=== PATIENT | female | born 1980 | race Caucasian/White ===

== ENCOUNTER 2020-10-08 10:03 | Outpatient (REF) | payer OTHER, SELFPAY ==
[2020-10-09 13:19] LABS: BV Int Neg Control Negative (Negative); BV Int Pos Control Positive (Positive)
[2020-10-09 17:43] LABS: C. trachomatis RNA TMA NOT DETECTED (NOT DETECTED); N. gonorrhoeae RNA TMA NOT DETECTED (NOT DETECTED)
== END 2020-10-08 10:04 | disposition home or self-care (01) ==
LOC: HO.LAB 10:03
PROVIDERS: PCP Internal Medicine; Visit Provider Advanced Practice Midwife
DX: Z01.419 Encounter for gynecological examination (general) (routine) without abnormal findings (principal); R10.2 Pelvic and perineal pain; Z11.8 Encounter for screening for other infectious and parasitic diseases; Z11.3 Encounter for screening for infections with a predominantly sexual mode of transmission
CPT/HCPCS: 87480; 87491; 87510; 87591; 87660; 88142

== ENCOUNTER 2020-10-12 11:23 | Outpatient (REF) | payer OTHER, SELFPAY | END 2020-10-12 11:24 | disposition home or self-care (01) | LOC: HO.LAB 11:23 | PROVIDERS: Visit Provider Advanced Practice Midwife | DX: Z13.89 Encounter for screening for other disorder (principal) ==

== ENCOUNTER 2020-10-18 | Outpatient (REF) | payer OTHER, SELFPAY ==
[2020-10-19 22:52] LABS: HPV mRNA E6/E7 rflx Not Detected (Not Detected)
== END 2020-10-18 00:01 | disposition home or self-care (01) ==
LOC: HO.LNP
PROVIDERS: Visit Provider Advanced Practice Midwife
DX: Z01.419 Encounter for gynecological examination (general) (routine) without abnormal findings (principal)
CPT/HCPCS: 36415; 87624

== ENCOUNTER 2020-10-20 11:01 | Outpatient (REF) | payer OTHER, SELFPAY ==
--- NOTE | ~2020-10-20 | US_ITS ---
EXAMINATION: PELVIC ULTRASOUND CLINICAL INFORMATION: Pelvic and perineal pain COMPARISON: None TECHNIQUE: Transabdominal and transvaginal pelvic ultrasound was performed. Transvaginal exam was performed for better visualization of the uterus and ovaries. FINDINGS: The uterus is anteverted and measures 12 x 4.7 x 6.7 cm in dimension. There are 3 focal uterine lesions suggestive of fibroids. These measure 2 x 1.2 x 1.4 cm and 0.9 x 0.8 x 0.8 cm in the anterior uterine body and 1.5 x 1.4 x 1.6 cm in the anterior uterine fundus. Endometrial thickness is normal measuring 0.8 cm. There are nabothian cysts in the cervix. The ovaries are normal-appearing. The right ovary measures 2.1 x 1 x 1.6 cm and the left ovary measures 2.4 x 1.6 x 2.1 cm. There is no fluid in the pelvis. US/US transvaginal IMPRESSION: Small uterine fibroids. Normal-appearing ovaries.
--- NOTE | ~2020-10-20 | US_ITS ---
EXAMINATION: PELVIC ULTRASOUND CLINICAL INFORMATION: Pelvic and perineal pain COMPARISON: None TECHNIQUE: Transabdominal and transvaginal pelvic ultrasound was performed. Transvaginal exam was performed for better visualization of the uterus and ovaries. FINDINGS: The uterus is anteverted and measures 12 x 4.7 x 6.7 cm in dimension. There are 3 focal uterine lesions suggestive of fibroids. These measure 2 x 1.2 x 1.4 cm and 0.9 x 0.8 x 0.8 cm in the anterior uterine body and 1.5 x 1.4 x 1.6 cm in the anterior uterine fundus. Endometrial thickness is normal measuring 0.8 cm. There are nabothian cysts in the cervix. The ovaries are normal-appearing. The right ovary measures 2.1 x 1 x 1.6 cm and the left ovary measures 2.4 x 1.6 x 2.1 cm. There is no fluid in the pelvis. US/US pelvic complete IMPRESSION: Small uterine fibroids. Normal-appearing ovaries.
== END 2020-10-20 11:02 | disposition home or self-care (01) ==
LOC: HO.US 11:01
PROVIDERS: PCP Internal Medicine; Visit Provider Advanced Practice Midwife
DX: R10.2 Pelvic and perineal pain (principal)
CPT/HCPCS: 76830; 76856

== ENCOUNTER 2021-02-28 11:25 | Outpatient (REF) | payer OTHER, SELFPAY ==
--- NOTE | ~2021-02-28 | MM_ITS ---
EXAMINATION: MM SCREENING DIGITAL BREAST TOMOSYNTHESIS, BILATERAL CLINICAL INFORMATION: Screening. Asymptomatic. Age 40. No prior breast imaging. No known family history breast cancer. The lifetime risk of breast cancer based on the Tyrer-Cuzick Model is 8%. COMPARISON: None (current study represents initial baseline exam). TECHNIQUE: Digital breast tomosynthesis is performed in both the craniocaudal and mediolateral oblique views along with computer-aided detection (CAD). Synthesized 2D images are generated from the tomosynthesis. FINDINGS: The breasts are heterogeneously dense, which may obscure small masses (ACR BI-RADS breast composition Category c). There are no significant masses, abnormal calcifications, or other abnormalities. The axilla and skin contours are unremarkable. MM/MM tomosynthesis screening BI IMPRESSION: No mammographic evidence of malignancy. ASSESSMENT: BI-RADS 1: Negative RECOMMENDATION: Routine annual mammography screening. This patient's information was entered into a reminder system with a target due date for their next mammogram.
== END 2021-02-28 11:26 | disposition home or self-care (01) ==
LOC: HO.MAMMO 11:25
PROVIDERS: Visit Provider Advanced Practice Midwife
DX: Z12.31 Encounter for screening mammogram for malignant neoplasm of breast (principal)
CPT/HCPCS: 77063; 77067

== ENCOUNTER 2021-05-17 16:32 | Emergency (ER) | payer OTHER, SELFPAY ==
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
[2021-05-17 16:45] VITALS: BP 160/109; BP 172/108; PULSE 112; PULSE 119; RESP 18; TEMP 37.2; O2SAT 100; O2SAT 95; BMI 27.9
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
[2021-05-17 17:07] VITALS: BP 159/97; PULSE 93; RESP 18; TEMP 36.1; O2SAT 95
--- NOTE | 2021-05-17 18:49 | PC.NURSE ---
Pt cleared of cervical collar. Steady to bathroom to void and currently in xray at this time
[2021-05-17] MEDS: Cyclobenzaprine HCl 10 MG TABLET PO (19:20)
[2021-05-17] MEDS: Ibuprofen 600 MG TABLET PO (19:20)
[2021-05-17 19:22] VITALS: BP 126/89; PULSE 83; RESP 16
[2021-05-17 19:23] VITALS: O2SAT 99
== END 2021-05-17 20:46 | disposition home or self-care (01) ==
PROVIDERS: Emergency Provider Emergency Medicine; PCP Internal Medicine
DX: S06.0X1A Concussion with loss of consciousness of 30 minutes or less, initial encounter (principal); S13.4XXA Sprain of ligaments of cervical spine, initial encounter; S20.312A Abrasion of left front wall of thorax, initial encounter; V43.52XA Car driver injured in collision with other type car in traffic accident, initial encounter; W22.11XA Striking against or struck by driver side automobile airbag, initial encounter; Y93.89 Activity, other specified; Y92.414 Local residential or business street as the place of occurrence of the external cause; Y99.9 Unspecified external cause status
CPT/HCPCS: 70450; 71046; 71100; 72125; 73030; 99284

== ENCOUNTER 2021-10-25 15:01 | Outpatient (REF) | payer OTHER, SELFPAY ==
[2021-10-26 13:10] LABS: BV Int Neg Control Negative (Negative); BV Int Pos Control Positive (Positive)
== END 2021-10-25 15:02 | disposition home or self-care (01) ==
LOC: HO.LAB 15:01
PROVIDERS: Visit Provider Advanced Practice Midwife
DX: Z01.419 Encounter for gynecological examination (general) (routine) without abnormal findings (principal)
CPT/HCPCS: 87480; 87510; 87660

== ENCOUNTER 2022-08-22 08:33 | Emergency (ER) | payer OTHER, SELFPAY ==
--- NOTE | ~2022-08-22 | XR_ITS ---
EXAMINATION: XR CHEST CLINICAL INFORMATION: Cough and fever. COMPARISON: Chest radiographs dated 05/17/2021. TECHNIQUE: 2 views of the chest were obtained. FINDINGS: No significant abnormality is noted involving the heart, lungs, mediastinum, bony thorax or soft tissues. Surgical clips overlie the right upper quadrant. XR/XR chest 2V IMPRESSION: No acute cardiopulmonary process.
[2022-08-22 08:47] VITALS: BP 113/79; PULSE 100; RESP 18; TEMP 37.4; O2SAT 98; BMI 29.2
--- NOTE | 2022-08-22 09:09 | ED.URI ---
HPI - URI/Sore Throat General Chief Complaint: Upper Respiratory Symptoms Stated Complaint: Flu Symptoms Time Seen by Provider: 08/22/22 08:59 Source: patient Mode of arrival: ambulatory Limitations: no limitations History of Present Illness HPI Narrative: 42-year-old female previously healthy here with 3 days of subjective fever, cough, congestion, chest discomfort with coughing, headache, body aches. No vomiting, diarrhea, shortness of breath, leg swelling or leg pain, skin rash, neck pain or neck stiffness. Patient reports multiple sick contacts at work including the flu Related Data Previous Rx's Medication Instructions Recorded cyclobenzaprine 10 mg tablet 10 mg PO TID PRN muscle spasm #14 05/17/21 tabs ibuprofen 600 mg tablet 600 mg PO Q6H PRN pain #60 tabs 05/17/21 metronidazole 0.75 % (37.5 mg/5 1 appful vaginal BEDTIME 5 days 10/27/21 gram) vaginal gel (Metrogel #70 grams Vaginal) nirmatrelvir 300 mg (150 mg See Rx Instructions PO .COMPLEX 08/22/22 x2)-ritonavir 100 mg tablet,dose #30 ea pack(EUA) (Paxlovid) Allergies Allergy/AdvReac Type Severity Reaction Status Date / Time No Known Allergies Allergy Verified 10/25/21 15:04 [No Known Allergies*] Review of Systems Review of Systems: Yes all other systems are reviewed and are negative Constitutional: Constitutional: Reports no additional constitutional complaints, Reports body ache(s), Denies chills, Reports fever(s), Reports headache(s) and Denies weakness Eyes: Eyes: Reports no additional eye complaints and Denies change in vision ENT: Reports system reviewed and no additional complaints, except as documented, Denies dizziness, Reports headache(s), Reports nasal congestion, Denies nasal discharge and Denies neck pain Cardiovascular: Cardiovascular: Reports no additional cardiovascular complaints, Reports chest pain, Denies leg edema and Denies dyspnea Respiratory: Respiratory: Reports no additional respiratory complaints, Reports cough and Denies dyspnea Gastrointestinal: Gastrointestinal: Reports no additional gastrointestinal complaints, Denies abdominal pain, Denies diarrhea, Denies nausea and Denies vomiting Genitourinary: Genitourinary: Reports no additional female genitourinary complaints and Denies urinary incontinence Musculoskeletal: Musculoskeletal: Reports no additional musculoskeletal complaints, Denies back pain, Denies arthralgias, Denies joint swelling, Denies neck pain, Denies numbness and Denies tingling Integumentary/Breasts: Skin/Breast: Reports system reviewed and no additional complaints, except as docu and Denies rash Neurologic: Reports system reviewed and no additional complaints, except as documented, Denies Abnormal speech present, Denies dizziness, Reports headache(s), Denies numbness, Denies tingling and Denies weakness PMF Past Medical History Attestation statement: The following information was validated with the patient. Source: old records reviewed and nursing notes reviewed Medical History Encounter for gynecological examination with Papanicolaou smear of cervix History of gallbladder disease Family History Family History Maternal Aunt Breast cancer Brother Diabetes Father Diabetes Social History Social History Alcohol intake: current Alcohol intake frequency: holidays/special occasions only Advance Directives: No Gender identity: Female Physical Exam Vital Signs: Vital Signs: Last Vital Signs Temp 99.3 F 08/22/22 08:47 Pulse 100 08/22/22 08:47 Resp 18 08/22/22 08:47 BP 113/79 08/22/22 08:47 Pulse Ox 98 08/22/22 08:47 O2 Del Method 08/22/22 08:47 BMI result Body Mass Index 29.2 Const: General: cooperative, healthy appearing, comfortable and no acute distress Orientation/consciousness: patient oriented x3 Limitations: no limitations HEENT: Head: Yes normal to inspection Ears: hearing grossly normal bilaterally and TM's normal bilaterally General nose exam: Normal external nose present Face and sinus: Yes normal facial exam Mouth: Normal oral and palatal mucosa present Throat: Yes posterior oropharynx normal, Yes tonsils normal and Yes uvula midline Eyes: General: appearance normal, both eyes and all related structures Pupils: Equal, round and reactive pupils present Neck: Neck: Yes normal visual inspection, Yes full ROM, Yes no lymphadenopathy and Yes no meningeal signs Chest: Chest palpation & inspection: normal inspection of the chest Resp: Effort & Inspection: normal respiratory effort Auscultation: clear to auscultation bilaterally Cardio: Rate: regular rate Rhythm: regular rhythm Peripheral pulses: Peripheral pulses 2+ throughout GI: Inspection: Yes normal to inspection Palpation (GI): Soft to palpation and nontender Auscultation: normal bowel sounds Back/Spine/Pelvis: Thoracic/Lumbar Spine: thoracic and lumbar spine normal to inspection Skin: General skin exam: no rashes or lesions noted Neuro: General: patient oriented x3, no meningeal signs, no focal motor deficits and normal sensation to monofilament Cranial nerves: Yes Equal, round and reactive pupils present Cognition (Neuro): normal cognition Speech: No Abnormal speech present Gait exam (Neuro): Normal gait present Motor exam (neuro): 5/5 motor strength present throughout Extrem: General: Yes normal to inspection, Yes no pedal edema and Yes no calf tenderness Course Course Course Narrative: COVID screen is positive. No hypoxia or tachypnea. Patient interested in Paxlovid. She is aware this is not FDA approved. She was given the information she about the medication. I explained common side effects the patient. Reviewed quarantine at home. Reviewed worrisome signs and symptoms of when to return to the emergency room. Comfortable plan for discharge home. Medications Administered Discontinued Medications Generic Name Dose Route Start Last Admin Trade Name Freq PRN Reason Stop Dose Admin Acetaminophen 975 mg 08/22/22 09:16 08/22/22 09:34 Acetaminophen 325 Mg Tablet PO 08/22/22 09:17 975 mg ONCE ONE Administration Medical Decision Making Medical Decision Making [facility] Narrative: 42-year-old female here with flu-like symptoms for 3 days including chest discomfort with coughing Perc score 0 Will check testing for flu, COVID, RSV. Will obtain x-ray and provide analgesia Differential Diagnosis Differential Diagnoses: The differential diagnosis associated with the presentation includes Pneumonia, viral syndrome,influemza Lab Data [facility] Lab Attestation statement: I reviewed the patient's lab results. Labs: Lab Results 08/22/22 Range/Units 08:53 Influenza Type A (PCR) NEGATIVE (Negative) Influenza Type B (PCR) NEGATIVE (Negative) RSV RNA Qual (PCR) NEGATIVE (Negative) SARS-CoV-2 RNA (RT-PCR) POSITIVE A (Negative) Independent Interpretation I performed an independent interpretation of an: Plain X-Ray Interpretation: [address] [address] XRay Report Signed Patient: Karlene Sherwood MR#: [id number] : 1980 Acct:[id number] Age/Sex: 42 / F ADM Date: 08/22/22 Loc: HO.ED Attending Dr: Ordering Physician: Sabina Penn NP Date of Service: 08/22/22 Procedure(s): XR chest 2V Accession Number(s): [id number] cc: Sabina Penn NP~ EXAMINATION: XR CHEST CLINICAL INFORMATION: Cough and fever. COMPARISON: Chest radiographs dated 05/17/2021. TECHNIQUE: 2 views of the chest were obtained. FINDINGS: No significant abnormality is noted involving the heart, lungs, mediastinum, bony thorax or soft tissues. Surgical clips overlie the right upper quadrant. XR/XR chest 2V IMPRESSION: No acute cardiopulmonary process. Discharge Plan Discharge Clinical Impression: COVID-19 Patient Disposition: Home, Self-Care Instructions: COVID-19 (Coronavirus Disease 2019) (ED) Additional Instructions: Quarantine for 5 days Alternate Motrin and Tylenol for pain or fever Increase fluids, rest Return for worsening symptoms We discussed prescribing Paxlovid. You were given a patient information sheet on this medication. This is not FDA approved. There is an emergency use authorization for the medication. Common side effects are vomiting, diarrhea, upset stomach X-ray shows no signs of pneumonia Prescriptions: New Paxlovid (EUA) 300 mg (150 mg x 2)-100 mg tablets,dose pack See Rx Instructions .ROUTE .COMPLEX Qty: 30 0RF Rx Instructions: take TWO 150 mg tablets of nirmatrelvir with ONE 100 mg tablet of ritonavir twice daily for 5 days No Action metronidazole [Metrogel Vaginal] 0.75 % gel 1 appful vaginal BEDTIME 5 Days Qty: 70 0RF cyclobenzaprine 10 mg tablet 10 mg PO TID PRN (Reason: muscle spasm) Qty: 14 0RF ibuprofen 600 mg tablet 600 mg PO Q6H PRN (Reason: pain) Qty: 60 0RF Referrals: Physician,None [Primary Care Provider] - Stand Alone Forms: Work/School Release Interventions: ED Discharge Assessment Last Done: 08/22/22 10:29 Discharge Date/Time: 08/22/22 10:32
[2022-08-22] MEDS: Acetaminophen 325 MG TABLET 975 MG PO (09:34)
[2022-08-22 09:47] LABS: Influenza A PCR NEGATIVE (Negative); Influenza B PCR NEGATIVE (Negative); Resp Syncy Virus RNA Qual PCR NEGATIVE (Negative); SARS COV2 PCR INHOUSE POSITIVE (Negative)
== END 2022-08-22 10:32 | disposition home or self-care (01) ==
PROVIDERS: Emergency Provider Emergency Medicine
DX: U07.1 COVID-19 (principal); R50.9 Fever, unspecified; R05.9 Cough, unspecified; R51.9 Headache, unspecified; M79.10 Myalgia, unspecified site; Z79.899 Other long term (current) drug therapy
CPT/HCPCS: 0241U; 71046; 99283; 99284

== ENCOUNTER 2022-09-07 10:53 | Emergency (ER) | payer OTHER, SELFPAY ==
--- NOTE | ~2022-09-07 | XR_ITS ---
EXAMINATION: XR CHEST CLINICAL INFORMATION: Cough, recent Covid COMPARISON: None TECHNIQUE: 2 views of the chest were obtained. FINDINGS: No significant abnormality is noted involving the heart, lungs, mediastinum, bony thorax or soft tissues. XR/XR chest 2V IMPRESSION: Unremarkable chest examination.
[2022-09-07 11:26] VITALS: BP 133/81; PULSE 114; RESP 18; TEMP 36.7; O2SAT 98; BMI 27.3
--- NOTE | 2022-09-07 11:26 | ED_ITS ---
HPI - URI/Sore Throat General Chief Complaint: Upper Respiratory Symptoms <Sabina Penn NP - Last Filed: 09/07/22 11:28> Stated Complaint: cough sob <Sabina Penn NP - Last Filed: 09/07/22 11:28> Time Seen by Provider: 09/07/22 13:24 <Sabina Penn NP - Last Filed: 09/07/22 11:28> Source: patient <Lauren Major NP - Last Filed: 09/07/22 15:20> Mode of arrival: ambulatory <Lauren Major NP - Last Filed: 09/07/22 15:20> Limitations: no limitations <Lauren Major NP - Last Filed: 09/07/22 15:20> History of Present Illness HPI Narrative: 42-year-old female diagnosed with COVID-19 on 08/22/2022 and started on nirmatrelvir-ritonavir antiviral therapy presents to the emergency department with a four-day history of cough, wheezing, headache, back pain with coughing. She recently had a tele health visit with her primary care provider and was started on prednisone and benzonatate which she began yesterday. She states after taking the prednisone with food, as directed, she began coughing and vomited the prednisone. She has not taken her dose today. She denies any recent fevers but endorses chills. She reports difficulty keeping down p.o. intake due to nausea due to coughing and shoulder/back pain when coughing. She denies any known history of asthma or reactive airway disease, she denies any chest pain, headache, changes in vision, or changes in bowel pattern. <Lauren Major NP - Last Filed: 09/07/22 15:20> MD elicited complaint: cough <Lauren Major NP - Last Filed: 09/07/22 15:20> Onset (ago): day(s) (4) <Lauren Major NP - Last Filed: 09/07/22 15:20> Consistency: constant <Lauren Major NP - Last Filed: 09/07/22 15:20> Severity: moderate <Lauren Major NP - Last Filed: 09/07/22 15:20> Description of mucous: yellow and bloody <Lauren Major NP - Last Filed: 09/07/22 15:20> Able to tolerate fluids by mouth: Yes <Lauren Major NP - Last Filed: 09/07/22 15:20> Exacerbating factors: exertion and deep breaths <Lauren Major NP - Last Filed: 09/07/22 15:20> Relieving factors: nothing <Lauren Major NP - Last Filed: 09/07/22 15:20> Treatments prior to arrival: none <Lauren Major NP - Last Filed: 09/07/22 15:20> Related Data Home Medications: Previous Rx's Medication Instructions Recorded cyclobenzaprine 10 mg tablet 10 mg PO TID PRN muscle spasm #14 05/17/21 tabs ibuprofen 600 mg tablet 600 mg PO Q6H PRN pain #60 tabs 05/17/21 metronidazole 0.75 % (37.5 mg/5 1 appful vaginal BEDTIME 5 days 10/27/21 gram) vaginal gel (Metrogel #70 grams Vaginal) nirmatrelvir 300 mg (150 mg See Rx Instructions PO .COMPLEX 08/22/22 x2)-ritonavir 100 mg tablet,dose #30 ea pack(EUA) (Paxlovid) hydrocodone-homatropine 5 mg-1.5 5 ml PO Q4-6H PRN cough #50 mL 09/07/22 mg/5 mL (5 mL) oral syrup (Hycodan) <Sabina Penn NP - Last Filed: 09/07/22 11:28> Allergies/Adverse Reactions: Allergies Allergy/AdvReac Type Severity Reaction Status Date / Time No Known Allergies Allergy Verified 10/25/21 15:04 [No Known Allergies*] <Sabina Penn NP - Last Filed: 09/07/22 11:28> Review of Systems Review of Systems: In addition to documented HPI above, the additional ROS was obtained: Constitutional: No Weight loss, No Fever ENT/Mouth: No Ear Pain, No Nasal Congestion, No Sinus Pain, No Hoarseness, No Rhinorrhea, No Swallowing Difficulty Cardiovascular: No Chest Pain, Respiratory: No Wheezing Gastrointestinal: No Diarrhea, No Constipation, No Abdominal pain Genitourinary: No Dysuria, No Urinary Frequency, No Hematuria, No Urinary Incontinence/retention, No Urgency, No Flank Pain Musculoskeletal: No joint pain, No Joint Swelling Skin: No Skin Lesions, No rash Neuro: No Weakness, No Numbness, No Paresthesias <Lauren Major NP - Last Filed: 09/07/22 15:20> Yes all other systems are reviewed and are negative <Lauren Major NP - Last Filed: 09/07/22 15:20> [facility] Past Medical History Medical History: Medical History Encounter for gynecological examination with Papanicolaou smear of cervix History of gallbladder disease <Sabina Penn NP - Last Filed: 09/07/22 11:28> Family History Family History: Family History Maternal Aunt Breast cancer Brother Diabetes Father Diabetes <Sabina Penn NP - Last Filed: 09/07/22 11:28> Social History Social History: Social History Alcohol intake: current Alcohol intake frequency: holidays/special occasions only Advance Directives: No Advance Directives Information Provided: Yes Gender identity: Female <Sabina Penn NP - Last Filed: 09/07/22 11:28> Physical Exam Vital Signs: Vital Signs: Last Vital Signs Temp 98.6 F 09/07/22 14:08 Pulse 99 09/07/22 14:08 Resp 18 09/07/22 14:08 BP 132/87 09/07/22 14:08 Pulse Ox 98 09/07/22 11:26 O2 Del Method 09/07/22 11:26 O2 Flow Rate 100 09/07/22 14:08 BMI result Body Mass Index 27.3 <Sabina Penn NP - Last Filed: 09/07/22 11:28> Vital Signs: Last Vital Signs Temp 98.6 F 09/07/22 14:08 Pulse 99 09/07/22 14:08 Resp 18 09/07/22 14:08 BP 132/87 09/07/22 14:08 Pulse Ox 98 09/07/22 11:26 O2 Del Method 09/07/22 11:26 O2 Flow Rate 100 09/07/22 14:08 BMI result Body Mass Index 27.3 <Lauren Major DIRECTOR [employer] - Last Filed: 09/07/22 15:20> Const: General: cooperative, alert and awake <Lauren Major DIRECTOR [employer] - Last Filed: 09/07/22 15:20> Nutritional Appearance: well nourished <Lauren Major DIRECTOR [employer] - Last Filed: 09/07/22 15:20> Orientation/consciousness: patient oriented x3 <Lauren Major DIRECTOR [employer] - Last Filed: 09/07/22 15:20> Limitations: no limitations <Lauren Major DIRECTOR [employer] - Last Filed: 09/07/22 15:20> HEENT: Head: Yes normal to inspection and Yes atraumatic <Lauren Major DIRECTOR [employer] - Last Filed: 09/07/22 15:20> Ears: hearing grossly normal bilaterally and external ears normal <Lauren Major DIRECTOR [employer] - Last Filed: 09/07/22 15:20> General nose exam: Normal external nose present and Normal nares present <Lauren Major DIRECTOR [employer] - Last Filed: 09/07/22 15:20> Face and sinus: Yes normal facial exam, Yes sinuses nontender and Yes face symmetric <Lauren Major DIRECTOR [employer] - Last Filed: 09/07/22 15:20> Mouth: Normal oral and palatal mucosa present <Lauren Major DIRECTOR [employer] - Last Filed: 09/07/22 15:20> Teeth and gingiva: dentition normal <Lauren Major DIRECTOR [employer] - Last Filed: 09/07/22 15:20> Throat: Yes posterior oropharynx normal <Lauren Major DIRECTOR [employer] - Last Filed: 09/07/22 15:20> Eyes: General: appearance normal, both eyes and all related structures <Lauren Major DIRECTOR [employer] - Last Filed: 09/07/22 15:20> Visual Cronin: normal visual cronin by confrontation <Lauren Major, DIRECTOR [employer] - Last Filed: 09/07/22 15:20> Alignment and Position: alignment normal <Lauren Major, DIRECTOR [employer] - Last Filed: 09/07/22 15:20> Periorbital: periorbital findings normal <Lauren Major, DIRECTOR [employer] - Last Filed: 09/07/22 15:20> Eyelids: Yes eyelids normal <Lauren Major, DIRECTOR [employer] - Last Filed: 09/07/22 15:20> Conjunctivae: conjunctivae normal <Lauren Major, DIRECTOR [employer] - Last Filed: 09/07/22 15:20> Sclerae: sclerae normal <Lauren Major, DIRECTOR [employer] - Last Filed: 09/07/22 15:20> Corneas: corneas normal <Lauren Major, DIRECTOR [employer] - Last Filed: 09/07/22 15:20> Pupils: Equal, round and reactive pupils present <Lauren Major, DIRECTOR [employer] - Last Filed: 09/07/22 15:20> EOM: EOMs intact bilaterally <Lauren Major, DIRECTOR [employer] - Last Filed: 09/07/22 15:20> Neck: Neck: Yes normal visual inspection, Yes full ROM and Yes no lymphadenopathy <Lauren Major, DIRECTOR [employer] - Last Filed: 09/07/22 15:20> Chest: Chest palpation & inspection: normal inspection of the chest <Lauren Major DIRECTOR [employer] - Last Filed: 09/07/22 15:20> Resp: Effort & Inspection: normal respiratory effort, Actively coughing Quality: dry and labored <Lauren Major, DIRECTOR [employer] - Last Filed: 09/07/22 15:20> Auscultation: clear to auscultation bilaterally, no crackles, no rhonchi and no wheezes <Lauren Major, DIRECTOR [employer] - Last Filed: 09/07/22 15:20> Cardio: Rate: regular rate <Lauren Major, DIRECTOR [employer] - Last Filed: 09/07/22 15:20> Rhythm: regular rhythm <Laurenburton Major, DIRECTOR [employer] - Last Filed: 09/07/22 15:20> Back/Spine/Pelvis: Cervical Spine: cervical ROM normal <Lauren Moriah, DIRECTOR [employer] - Last Filed: 09/07/22 15:20> Thoracic/Lumbar Spine: thoraco-lumbar ROM normal <Lauren Moriah, DIRECTOR [employer] - Last Filed: 09/07/22 15:20> Skin: General skin exam: no rashes or lesions noted <Lauren Moriah, DIRECTOR [employer] - Last Filed: 09/07/22 15:20> Neuro: General: patient oriented x3, tone normal and moves all extremities <Lauren Moriah, DIRECTOR [employer] - Last Filed: 09/07/22 15:20> Cranial nerves: Yes Equal, round and reactive pupils present <Lauren Moriah, DIRECTOR [employer] - Last Filed: 09/07/22 15:20> Cognition (Neuro): normal cognition <Lauren Yaronucjun, DIRECTOR [employer] - Last Filed: 09/07/22 15:20> Gait exam (Neuro): Normal gait present <Lauren Moriah, DIRECTOR [employer] - Last Filed: 09/07/22 15:20> Motor exam (neuro): 5/5 motor strength present throughout <Lauren Moriah, DIRECTOR [employer] - Last Filed: 09/07/22 15:20> Extrem: General: Yes normal to inspection, Yes full ROM and Yes capillary refill normal <Lauren Moriah, DIRECTOR [employer] - Last Filed: 09/07/22 15:20> Psych: Appearance: grossly normal <Lauren Yaronla, DIRECTOR [employer] - Last Filed: 09/07/22 15:20> Mental Status: mental status grossly normal <Lauren Plla, DIRECTOR [employer] - Last Filed: 09/07/22 15:20> Speech and movement: Normal speech and movement present <Lauren Laurajun, DIRECTOR [employer] - Last Filed: 09/07/22 15:20> Affect: normal affect <Lauren Plucjun, DIRECTOR [employer] - Last Filed: 09/07/22 15:20> Attitude: cooperative <Lauren Moriah, DIRECTOR [employer]GEMENT - Last Filed: 09/07/22 15:20> Thought process: Normal thought process present <Lauren Lauraiennik, DIRECTOR [employer]NAGEMENT - Last Filed: 09/07/22 15:20> Thought content: Normal thought content present <Lauren Major NP - Last Filed: 09/07/22 15:20> Insight: Good insight present (Psych) <Lauren Major NP - Last Filed: 09/07/22 15:20> Judgement: Good judgement present (Psych) <Lauren Major NP - Last Filed: 09/07/22 15:20> Course Course Course Narrative: This is a rapid medical exam. Deferred additional HPI, ROS, PE to primary provider. 42 yo female healthy here with 4 days of cough, wheezing, headache, back pain with coughing. Will check CXR, obtain swabs for flu, covid, rsv. VSS <Sabina Penn NP - Last Filed: 09/07/22 11:28> Medications Administered Discontinued Medications Generic Name Dose Route Start Last Admin Trade Name Freq PRN Reason Stop Dose Admin Albuterol Sulfate 2 puff 09/07/22 13:59 09/07/22 14:07 Albuterol Sulfate 90 Mcg 8 Gm Inhaler INHALE 09/07/22 14:00 2 puff ONCE ONE Administration Hydrocodone Bit/Homatropine Methylb 5 ml 09/07/22 13:57 09/07/22 14:07 Hydrocodone/Homat 5/1.5/5 Ml 5 Ml Syrup PO 09/07/22 13:58 5 ml ONCE ONE Administration Ondansetron HCl 4 mg 09/07/22 13:57 09/07/22 14:07 Ondansetron Odt 4 Mg Tab.Rapdis TRANSLINGU 09/07/22 13:58 4 mg ONCE ONE Administration <Sabina Penn NP - Last Filed: 09/07/22 11:28> Medications Administered Discontinued Medications Generic Name Dose Route Start Last Admin Trade Name Freq PRN Reason Stop Dose Admin Albuterol Sulfate 2 puff 09/07/22 13:59 09/07/22 14:07 Albuterol Sulfate 90 Mcg 8 Gm Inhaler INHALE 09/07/22 14:00 2 puff ONCE ONE Administration Hydrocodone Bit/Homatropine Methylb 5 ml 09/07/22 13:57 09/07/22 14:07 Hydrocodone/Homat 5/1.5/5 Ml 5 Ml Syrup PO 09/07/22 13:58 5 ml ONCE ONE Administration Ondansetron HCl 4 mg 09/07/22 13:57 09/07/22 14:07 Ondansetron Odt 4 Mg Tab.Gita LIGHTU 09/07/22 13:58 4 mg ONCE ONE Administration <Lauren Major NP - Last Filed: 09/07/22 15:20> Medical Decision Making Medical Decision Making MDM Narrative: 42-year-old female diagnosed with COVID-19 on 08/22/2022 and started on nirmatrelvir-ritonavir antiviral therapy presents to the emergency department with a four-day history of cough, wheezing, headache, back pain with coughing. She recently had a telehealth visit with her primary care provider and was started on prednisone and benzonatate which she began yesterday. Chest xray and blood work unremarkable. Serology positive for both COVID-19 and influenza A. Hycodan cough medication and zofran given for cough and complaints of nausea related to cough with good effect. Pt safe for discharge with plan to continue Prednisone and to begin Zofran as needed for nausea and Hycodan cough medicine as needed. HPI, PE, diagnostics, and plan discussed with patient with no unanswered questions at this time. Patient educated to return to the emergency room with worsening shortness of breath, chest pain, headache, vision changes, or any other concerning emergent symptoms. Recommended follow-up with her primary care provider for further treatment and management. <Lauren Major NP - Last Filed: 09/07/22 15:20> Lab Data MDM Lab Attestation statement: I reviewed the patient's lab results. <Lauren Major NP - Last Filed: 09/07/22 15:20> Labs: Lab Results 09/07/22 Range/Units 11:41 Influenza Type A (PCR) POSITIVE A (Negative) Influenza Type B (PCR) NEGATIVE (Negative) RSV RNA Qual (PCR) NEGATIVE (Negative) SARS-CoV-2 RNA (RT-PCR) POSITIVE A (Negative) <Sabina Penn NP - Last Filed: 09/07/22 11:28> Lab Results 09/07/22 Range/Units 11:41 Influenza Type A (PCR) POSITIVE A (Negative) Influenza Type B (PCR) NEGATIVE (Negative) RSV RNA Qual (PCR) NEGATIVE (Negative) SARS-CoV-2 RNA (RT-PCR) POSITIVE A (Negative) <Lauren Maojr NP - Last Filed: 09/07/22 15:20> Radiology Impression Discussion of test interpretation with radiology: I have reviewed the radiologist's reading. <Lauren Major NP - Last Filed: 09/07/22 15:20> Radiologist Impression: EXAMINATION: XR CHEST CLINICAL INFORMATION: Cough, recent Covid COMPARISON: None TECHNIQUE: 2 views of the chest were obtained. FINDINGS: No significant abnormality is noted involving the heart, lungs, mediastinum, bony thorax or soft tissues. XR/XR chest 2V IMPRESSION: Unremarkable chest examination. Dictated By: Duke Jha MD Signed By: <Electronically signed by Duke Jha MD in [place]> 09/07/22 1220 DD/ 1211 TD/TT:? City Council Member: MSM <Lauren Major NP - Last Filed: 09/07/22 15:20> Discharge Plan Discharge Clinical Impression: COVID-19, Influenza A <Sabina Penn NP - Last Filed: 09/07/22 11:28> Patient Disposition: Home, Self-Care <Sabina Penn NP - Last Filed: 09/07/22 11:28> Instructions: Influenza (ED), Droplet Precautions (ED), COVID-19 (Coronavirus Disease 2019) (ED) <Sabina Penn NP - Last Filed: 09/07/22 11:28> Additional Instructions: Your nasal swab is positive for influenza a and COVID-19 today. This is not necessarily mean you have a new case of COVID-19, the swab may have detected COVID from your previous course. Your chest x-ray is negative for infection. You are safe for discharge at this time. Please continue Prednisone. You have been prescribed and Albuterol inhaler to help with shortness of breath and Zofran to help with nausea and Hycodan cough syrup as needed. Please return to the emergency room with worsening shortness of breath, chest pain, headache, vision changes, or any other concerning emergent symptoms. Recommended follow-up with her primary care provider for further treatment and management. DO NOT take with cyclobenzaprine <Sabina Penn NP - Last Filed: 09/07/22 11:28> Prescriptions: New hydrocodone-homatropine [Hycodan] 5-1.5 mg/5 mL (5 mL) syrup 5 ml PO Q4-6H PRN (Reason: cough) Qty: 50 0RF Rx Instructions: Partial Fill upon patient request. No Action metronidazole [Metrogel Vaginal] 0.75 % gel 1 appful vaginal BEDTIME 5 Days Qty: 70 0RF cyclobenzaprine 10 mg tablet 10 mg PO TID PRN (Reason: muscle spasm) Qty: 14 0RF ibuprofen 600 mg tablet 600 mg PO Q6H PRN (Reason: pain) Qty: 60 0RF Paxlovid (EUA) 300 mg (150 mg x 2)-100 mg tablets,dose pack See Rx Instructions .ROUTE .COMPLEX Qty: 30 0RF Rx Instructions: take TWO 150 mg tablets of nirmatrelvir with ONE 100 mg tablet of ritonavir twice daily for 5 days <Sabina Penn NP - Last Filed: 09/07/22 11:28> Referrals: [facility] [Provider Group] [facility], [place] [Provider Group] [facility] [Provider Group] <Sabina Penn NP - Last Filed: 09/07/22 11:28> Stand Alone Forms: Work/School Release <Sabina Penn NP - Last Filed: 09/07/22 11:28> Interventions: ED Discharge Assessment Last Done: 09/07/22 15:16 <Sabina Penn NP - Last Filed: 09/07/22 11:28> Discharge Date/Time: 09/07/22 15:17 <Sabina Penn NP - Last Filed: 09/07/22 11:28> Print Language: Macanese <Sabina Penn NP - Last Filed: 09/07/22 11:28>
[2022-09-07 12:34] LABS: Influenza A PCR POSITIVE (Negative); Influenza B PCR NEGATIVE (Negative); Resp Syncy Virus RNA Qual PCR NEGATIVE (Negative); SARS COV2 PCR INHOUSE POSITIVE (Negative)
[2022-09-07] MEDS: Ondansetron ODT 4 MG TAB.RAPDIS TRANSLINGU (14:07)
[2022-09-07] MEDS: HYDROcodone/Homat 5/1.5/5 ML 5 ML SYRUP PO (14:07)
[2022-09-07] MEDS: Albuterol Sulfate 90 MCG 8 GM INHALER 2 PUFF INHALE (14:07)
[2022-09-07 14:08] VITALS: BP 132/87; PULSE 99; RESP 18; TEMP 37
== END 2022-09-07 15:17 | disposition home or self-care (01) ==
PROVIDERS: Nurse Practitioner Family; Emergency Provider Student in an Organized Health Care Education/Training Program
DX: U07.1 COVID-19 (principal); J10.1 Influenza due to other identified influenza virus with other respiratory manifestations
CPT/HCPCS: 0241U; 71046; 99284

== ENCOUNTER 2022-10-20 15:15 | Outpatient (REF) | payer OTHER, SELFPAY ==
--- NOTE | ~2022-10-20 | MM_ITS ---
EXAMINATION: MM SCREENING DIGITAL BREAST TOMOSYNTHESIS, BILATERAL CLINICAL INFORMATION: Screening. Asymptomatic. The lifetime risk of breast cancer based on the Tyrer-Cuzick Model is 10%. COMPARISON: Mammography: 02/28/2021 (baseline) TECHNIQUE: Digital breast tomosynthesis is performed in both the craniocaudal and mediolateral oblique views along with computer-aided detection (CAD). Synthesized 2D images are generated from the tomosynthesis. FINDINGS: The breasts are heterogeneously dense, which may obscure small masses (ACR BI-RADS breast composition Category c). There are no significant masses, abnormal calcifications, or other abnormalities. Parenchymal pattern is similar to prior baseline exam. No developing density or architectural abnormality. The axilla and skin contours are unremarkable. No significant changes. MM/MM tomosynthesis screening BI IMPRESSION: No mammographic evidence of malignancy. ASSESSMENT: BI-RADS 1: Negative RECOMMENDATION: Routine annual mammography screening. This patient's information was entered into a reminder system with a target due date for their next mammogram.
== END 2022-10-20 15:16 | disposition home or self-care (01) ==
LOC: HO.MAMMO 15:15
PROVIDERS: Visit Provider Internal Medicine
DX: Z12.31 Encounter for screening mammogram for malignant neoplasm of breast (principal)
CPT/HCPCS: 77063; 77067

== ENCOUNTER 2022-11-21 14:24 | Emergency (ER) | payer OTHER, SELFPAY ==
--- NOTE | ~2022-11-21 | CT_ITS ---
EXAMINATION: CT ABDOMEN AND PELVIS WITHOUT CONTRAST CLINICAL INFORMATION: Kidney stones, right-sided back and flank pain. COMPARISON: None TECHNIQUE: Multidetector volumetric imaging was performed from the superior aspect of the liver through the pubic symphysis. Sagittal and coronal reformatted images were obtained on the technologist's workstation. Lack of intravenous and oral contrast limits visceral evaluation. This CT examination was performed using dose optimization techniques as appropriate, variously including the following: *Automated exposure control *Adjustment of mA and/or kV according to patient size (this includes techniques or standardized protocols for targeted exams where dose is matched to indication/reason for exam; i.e. extremities or head) *Use of iterative reconstruction technique DLP: 504 mGy-cm FINDINGS: LUNG BASES: The visualized lung bases are unremarkable. LIVER, GALLBLADDER, AND BILIARY TREE: Diffuse decreased hepatic attenuation and mild enlargement. No focal abnormality. Status post cholecystectomy. PANCREAS: Unremarkable. SPLEEN: Unremarkable. ADRENAL GLANDS: Unremarkable. KIDNEYS AND URETERS: Punctate to small nonobstructing intrarenal calculi are seen bilaterally. A loan representative calculus in the lower pole of the right kidney measures 0.3 cm (image 63, series 7). BLADDER: Unremarkable. GASTROINTESTINAL TRACT: The stomach, small bowel and appendix are unremarkable. The colon and rectum are unremarkable. ABDOMINAL WALL: No significant hernia is appreciated. LYMPH NODES: Normal. VASCULAR: Unremarkable. PELVIC VISCERA: Unremarkable. OSSEOUS STRUCTURES: L4-5 and L5-S1 mild to moderate multilevel degenerative disc disease. No acute/suspicious abnormality. Mild bilateral sacroiliac degenerative joint changes. CT/CT abdomen pelvis wo IV con IMPRESSION: 1. Punctate to small nonobstructing intrarenal calculi bilaterally. No hydroureteronephrosis. 2. Hepatic steatosis and mild enlargement without focal abnormality. 3. L4-5 and L5-S1 mild to moderate multilevel degenerative disc disease. Mild bilateral sacroiliac degenerative joint changes.
[2022-11-21 14:25] VITALS: BP 146/99; PULSE 101; RESP 16; TEMP 526; TEMP 978.8; O2SAT 97; BMI 28.3
[2022-11-21 14:50] LABS: MANUAL DIFF FLAG NO
[2022-11-21 14:52] LABS: Basophils Percent Auto 0.4 % (0-2); Eosinophils Absolute Auto 0.2 X10*3/uL (0.0-0.4); Eosinophils Percent Auto 2.6 % (0-4); Hematocrit 36.9 % (37.0-47.0); Hemoglobin 12.4 g/dl (12.0-16.0); Imm Gran Abs Auto 0.03 X10*3/uL (0.00-0.03); Imm Gran Pct Auto 0.4 % (0.0-0.4); Lymphocytes Percent Auto 26.5 % (20-40); Mean Corpuscular HGB Conc 33.6 g/dl (31.0-35.0); Mean Corpuscular Hemoglobin 29.7 pg (27.0-33.0); Mean Corpuscular Volume 88.3 fL (80.0-98.0); Mean Platelet Volume 9.3 fL (9.4-12.3); Monocytes Absolute Auto 0.4 X10*3/uL (0.1-1.2); Monocytes Percent Auto 5.7 % (2-11); Neutrophils Absolute Auto 4.9 x10*3/uL (2.0-8.3); Neutrophils Percent Auto 64.4 % (45-73); Platelet Count 317 X10*3/uL (160-400); Red Blood Count 4.18 X10*6/uL (4.20-5.50); Red Cell Distribution Width 12.5 % (11.0-16.0); White Blood Count 7.6 X10*3/uL (4.8-10.8)
[2022-11-21 14:57] LABS: INTERNATIONAL NORM RATIO 0.9 (0.9-1.1); Prothrombin Time 10.6 SEC (10.0-13.1)
[2022-11-21 15:19] LABS: Alanine Aminotransferase 68 U/L (0-31); Albumin Level 4.1 g/dL (3.5-5.0); Alkaline Phosphatase 112 U/L (39-117); Anion Gap 13 (12-20); Aspartate Amino Transferase 42 U/L (5-31); Bilirubin Total 0.4 mg/dL (0.0-1.0); Blood Urea Nitrogen 8 mg/dL (9-16); Carbon Dioxide 27 mmol/L (22-29); Chloride 105 mmol/L (96-108); Creatinine Clr Calc Pharmacy 73.2; Estimated Glomerular Filt Rate > 60; Glucose Random 138 mg/dL (60-115); Lipase 33 U/L (8-78); Magnesium 1.9 mg/dL (1.6-2.6); Potassium 3.8 mmol/L (3.3-5.1); Sodium 141 mmol/L (135-145); Total Protein 7.3 g/dL (6.5-8.0)
[2022-11-21 15:29] LABS: HCG Quantitative < 2 mIU/mL
--- NOTE | 2022-11-21 17:09 | ED.GENADULT ---
HPI - General Adult General Chief complaint: Abdominal Pain Stated complaint: kidney stones Time Seen by Provider: 11/21/22 17:04 Source: patient Mode of arrival: ambulatory Limitations: no limitations History of Present Illness HPI narrative: This is a 42-year-old female history of kidney stones presenting to the emergency department for right-sided flank discomfort times a week and a half with associated urinary urgency, difficulty initiating urinary stream times a few days. Patient tells me she feels that the right-sided flank pain is radiating down into her pelvis, she tells me at times it is difficult to urinate and she feels like there is a stone stuck. She tells me this feels like the last time she had a kidney stone. She has been drinking plenty of fluids however pain is still present. Rates the pain a 4/10, intermittent, sharp. Patient denies fevers, chills, nausea, vomiting, abdominal pain, vaginal pain, vaginal discharge vaginal bleeding, headache, chest pain, shortness of breath. Related Data Previous Rx's Medication Instructions Recorded cyclobenzaprine 10 mg tablet 10 mg PO TID PRN muscle spasm #14 05/17/21 tabs ibuprofen 600 mg tablet 600 mg PO Q6H PRN pain #60 tabs 05/17/21 metronidazole 0.75 % (37.5 mg/5 1 appful vaginal BEDTIME 5 days 10/27/21 gram) vaginal gel (Metrogel #70 grams Vaginal) nirmatrelvir 300 mg (150 mg See Rx Instructions PO .COMPLEX 08/22/22 x2)-ritonavir 100 mg tablet,dose #30 ea pack(EUA) (Paxlovid) hydrocodone-homatropine 5 mg-1.5 5 ml PO Q4-6H PRN cough #50 mL 09/07/22 mg/5 mL (5 mL) oral syrup (Hycodan) hydrocodone-homatropine 5 mg-1.5 5 ml PO Q4-6H PRN cough #60 mL 09/08/ mg/5 mL (5 mL) oral syrup (Hycodan) ketorolac 10 mg tablet 10 mg PO TID PRN pain 5 days #15 11/21/22 tabs prednisone 20 mg tablet 40 mg PO DAILY 5 days #10 tabs 11/21/22 Allergies Allergy/AdvReac Type Severity Reaction Status Date / Time No Known Allergies Allergy Verified 10/25/21 15:04 [No Known Allergies*] Review of Systems Review of Systems: Constitutional : No Weight loss, No Fever, No Chills, No Fatigue, No Malaise ENT/Mouth : No sore throat, No Rhinorrhea Eyes: No Eye Pain, No Swelling, No Redness Cardiovascular : No Chest Pain, No SOB, No Dyspnea on Exertion, No Orthopnea, No Edema, No Palpitations Respiratory : No Cough, No Sputum, No Wheezing Gastrointestinal : No Nausea, No Vomiting, No Diarrhea, No Constipation, No abdominal Pain, No Hematochezia, No Melena Genitourinary : No Dysuria, No Urinary Frequency, No Hematuria, + difficulty initiating urinary stream Musculoskeletal : No joint pain, No Myalgias, No Joint Swelling, + flank pain Skin : No Skin Lesions, No rash Neuro : No Weakness, No Numbness, No Dizziness, No Headache Psych : No Anxiety/Panic, No Depression All other systems reviewed and are negative Yes all other systems are reviewed and are negative [facility] Past Medical History Attestation statement: The following information was validated with the patient. Source: old records reviewed and nursing notes reviewed Medical History Encounter for gynecological examination with Papanicolaou smear of cervix History of gallbladder disease Family History Family History Maternal Aunt Breast cancer Brother Diabetes Father Diabetes Social History Social History Alcohol intake: current Alcohol intake frequency: holidays/special occasions only Advance Directives: No Advance Directives Information Provided: Yes Gender identity: Female Physical Exam ED Vital Signs: Vital Signs - 24 hr 11/21/22 14:25 11/21/22 17:35 Temperature 978.8 F H Pulse Rate 101 H 83 Respiratory Rate 16 16 Blood Pressure 146/99 H 138/83 Pulse Oximetry 97 97 Oxygen Delivery Method Room Air Room Air BMI result Body Mass Index 28.3 vss Appearance: Alert.? Oriented X3.? No acute distress.? Head: Normocephalic, atraumatic, no step-offs or deformities Eyes: Pupils equal, round and reactive to light.? CVS: Normal heart rate and rhythm.? Pulses normal.? Respiratory: No respiratory distress.? Breath sounds normal.? Abdomen: Soft and nontender.? Skin: Skin warm and dry.? Normal skin color.? Normal skin turgor.? Extremities: No lower extremity edema.? No calf ttp. 5/5 strength to bilateral upper and lower extremities Back: No CVA tenderness bilaterally Neuro: Oriented X 3.? No motor deficit.? No sensory deficit. CN 2-12 intact Course Reevaluation(s) Reevaluation #1: CBC appears to be around normal limits. Chemistry without acute electrolyte abnormalities requiring intervention. Beta hCG negative. Lipase normal. CT of the abdomen and pelvis with punctate to small nonobstructing intrarenal calculi bilaterally. No hydroureter nephrosis. Hepatic steatosis. L4 and L5 and L5 and S1 with [id number] multilevel degenerative disc disease. Educated patient on these findings. It is possible that she is currently passing kidney stones and this is why she is uncomfortable. UA is pending. Patient is being hydrated with normal saline and given Toradol for pain. Will re-evaluate. Likely will be discharged home with Urology follow-up. Time: 17:27 Reevaluation #2: Patient feeling much better at this time. Will discharge home with Toradol and prednisone. Will have her follow-up with Urology. Educated patient on diagnosis and treatment plan, answered all question, patient verbalizes understanding. At this time patient will be discharged home, advised to return with new or worsening symptoms. Educated on worrisome signs and symptoms and when to return. At this time I feel comfortable discharge home. Time: 18:41 Medications Administered Discontinued Medications Generic Name Dose Route Start Last Admin Trade Name Freq PRN Reason Stop Dose Admin Sodium Chloride 1,000 mls @ 999 mls/hr 11/21/22 17:30 11/21/22 18:28 Ns IV 11/21/22 18:30 Infused .Q1H1M AGNES Infusion Ketorolac Tromethamine 30 mg 11/21/22 17:22 11/21/22 17:37 Ketorolac Tromethamine 15 Mg/Ml Vial IVPUSH 11/21/22 17:23 30 mg ONCE ONE Administration Medical Decision Making Medical Decision Making [facility] Narrative: [id number] 42-year-old female presents with right-sided flank pain radiating down towards her pelvis, history of kidney stones, reports associated urinary hesitancy, frequency. Physical exam benign Concerns for possible kidney stone. History and physical exam not consistent with pyelonephritis, ovarian torsion, ectopic . No signs of cauda equina or epidural abscess. Other differentials include musculoskeletal pain. I do not suspect obstructing uropathy. Labs, urine, CT of the abdomen and pelvis without contrast rule out kidney stone. Differential Diagnosis Differential Diagnoses: The differential diagnosis associated with the presentation includes Concerns for possible kidney stone. History and physical exam not consistent with pyelonephritis, ovarian torsion, ectopic . No signs of cauda equina or epidural abscess. Other differentials include musculoskeletal pain. I do not suspect obstructing uropathy. Admission/Observation Consideration of admission/observation: Escalation of care including admission/observation considered Unlikely Lab Data MDM Lab Attestation statement: I reviewed the patient's lab results. 11/21/22 14:47 11/21/22 14:47 Labs: Lab Results 11/21/22 11/21/22 11/21/22 Range/Units 14:47 14:47 14:47 WBC 7.6 (4.8-10.8) X10*3/uL RBC 4.18 L (4.20-5.50) X10*6/uL Hgb 12.4 (12.0-16.0) g/dl Hct 36.9 L (37.0-47.0) % MCV 88.3 (80.0-98.0) fL MCH 29.7 (27.0-33.0) pg MCHC 33.6 (31.0-35.0) g/dl RDW 12.5 (11.0-16.0) % Plt Count 317 (160-400) X10*3/uL MPV 9.3 L (9.4-12.3) fL Immature Gran % (Auto) 0.4 (0.0-0.4) % Neut % (Auto) 64.4 (45-73) % Lymph % (Auto) 26.5 (20-40) % Bonner % (Auto) 5.7 (2-11) % Eos % (Auto) 2.6 (0-4) % Baso % (Auto) 0.4 (0-2) % Lymph # (Auto) 2.0 (1.2-4.9) X10*3/uL Bonner # (Auto) 0.4 (0.1-1.2) X10*3/uL Eos # (Auto) 0.2 (0.0-0.4) X10*3/uL Baso # (Auto) 0.0 (0.0-0.2) X10*3/uL Abs Immat Gran (auto) 0.03 (0.00-0.03) X10*3/uL Absolute Neuts (auto) 4.9 (2.0-8.3) x10*3/uL Absolute Nucleated RBC 0.000 (0.0-0.012) X10*3/uL Nucleated RBC % (auto) 0.0 (0.0-0.2) /100WBC PT 10.6 (10.0-13.1) SEC INR 0.9 (0.9-1.1) Sodium 141 (135-145) mmol/L Potassium 3.8 (3.3-5.1) mmol/L Chloride 105 (96-108) mmol/L Carbon Dioxide 27 (22-29) mmol/L Anion Gap 13 (12-20) BUN 8 L (9-16) mg/dL Creatinine 0.83 (0.5-1.4) mg/dL Estim Creat Clear Calc 73.2 Estimated GFR > 60 Random Glucose 138 H (60-115) mg/dL Calcium 9.0 (8.4-10.2) mg/dL Magnesium 1.9 (1.6-2.6) mg/dL Total Bilirubin 0.4 (0.0-1.0) mg/dL AST 42 H (5-31) U/L ALT 68 H (0-31) U/L Alkaline Phosphatase 112 (39-117) U/L Total Protein 7.3 (6.5-8.0) g/dL Albumin 4.1 (3.5-5.0) g/dL Lipase 33 (8-78) U/L Beta HCG, Quant < 2 mIU/mL Urine Color Urine Appearance Urine pH (5.0-9.0) Ur Specific [place] (1.005-1.025) Urine Protein (Neg-Trace) mg/dL Urine Glucose (UA) (Negative) mg/dL Urine Ketones (Negative) mg/dL Urine Blood (Negative) Urine Nitrite (Negative) Ur Leukocyte Esterase (Negative) 11/21/22 Range/Units 18:13 WBC (4.8-10.8) X10*3/uL RBC (4.20-5.50) X10*6/uL Hgb (12.0-16.0) g/dl Hct (37.0-47.0) % MCV (80.0-98.0) fL MCH (27.0-33.0) pg MCHC (31.0-35.0) g/dl RDW (11.0-16.0) % Plt Count (160-400) X10*3/uL MPV (9.4-12.3) fL Immature Gran % (Auto) (0.0-0.4) % Neut % (Auto) (45-73) % Lymph % (Auto) (20-40) % Bonner % (Auto) (2-11) % Eos % (Auto) (0-4) % Baso % (Auto) (0-2) % Lymph # (Auto) (1.2-4.9) X10*3/uL Bonner # (Auto) (0.1-1.2) X10*3/uL Eos # (Auto) (0.0-0.4) X10*3/uL Baso # (Auto) (0.0-0.2) X10*3/uL Abs Immat Gran (auto) (0.00-0.03) X10*3/uL Absolute Neuts (auto) (2.0-8.3) x10*3/uL Absolute Nucleated RBC (0.0-0.012) X10*3/uL Nucleated RBC % (auto) (0.0-0.2) /100WBC PT (10.0-13.1) SEC INR (0.9-1.1) Sodium (135-145) mmol/L Potassium (3.3-5.1) mmol/L Chloride (96-108) mmol/L Carbon Dioxide (22-29) mmol/L Anion Gap (12-20) BUN (9-16) mg/dL Creatinine (0.5-1.4) mg/dL Estim Creat Clear Calc Estimated GFR Random Glucose (60-115) mg/dL Calcium (8.4-10.2) mg/dL Magnesium (1.6-2.6) mg/dL Total Bilirubin (0.0-1.0) mg/dL AST (5-31) U/L ALT (0-31) U/L Alkaline Phosphatase (39-117) U/L Total Protein (6.5-8.0) g/dL Albumin (3.5-5.0) g/dL Lipase (8-78) U/L Beta HCG, Quant mIU/mL Urine Color Yellow Urine Appearance Clear Urine pH 7.0 (5.0-9.0) Ur Specific [place] 1.010 (1.005-1.025) Urine Protein Negative (Neg-Trace) mg/dL Urine Glucose (UA) Negative (Negative) mg/dL Urine Ketones Negative (Negative) mg/dL Urine Blood Negative (Negative) Urine Nitrite Negative (Negative) Ur Leukocyte Esterase Negative (Negative) Independent Interpretation I performed an independent interpretation of an: CT Scan (CT/CT abdomen pelvis wo IV con IMPRESSION: 1. Punctate to small nonobstructing intrarenal calculi bilaterally. No hydroureteronephrosis. 2. Hepatic steatosis and mild enlargement without focal abnormality. 3. L4-5 and L5-S1 mild to moderate multilevel degenerative disc disease. Mild bilateral sac) Radiology Impression Discussion of test interpretation with radiology: I have reviewed the radiologist's reading. External Record Review External record reviewed: Inpatient record, Office record, Outpatient record, Prior outpatient labs, Prior outpatient radiology, Primary care record and Outside ED record Core Measures AMI core measures followed: Yes Measure exclusions: not indicated Critical Care Time Critical Care Time Critical Care Time: No Discharge Plan Discharge Clinical Impression: Kidney stone, Right flank pain Patient Disposition: Home, Self-Care Additional Instructions: Take your medications as prescribed. If you were prescribed antibiotics today, it is important that you take your medication to their entirety, do not skip any doses, do not finish them early. Follow-up with your primary care provider this week. Follow up with urology Return to the emergency department with new or worsening symptoms. Such as fevers, chills, chest pain, shortness of breath, nausea, vomiting, dizziness, headache, vision changes, lethargy In case of emergency call 911 Toradol has been sent to your pharmacy, you tolerated this well in the department. Please take this as prescribed do not take this with ibuprofen, or other NSAIDs, do not mix this with alcohol. Side effects of this medication including increased risk for bleeding and possible kidney injury. CT/CT abdomen pelvis wo IV con IMPRESSION: 1. Punctate to small nonobstructing intrarenal calculi bilaterally. No hydroureteronephrosis. 2. Hepatic steatosis and mild enlargement without focal abnormality. 3. L4-5 and L5-S1 mild to moderate multilevel degenerative disc disease. Mild bilateral sacroiliac degenerative joint changes. Prescriptions: New prednisone 20 mg tablet 40 mg PO DAILY 5 Days Qty: 10 0RF ketorolac 10 mg tablet 10 mg PO TID PRN (Reason: pain) 5 Days Qty: 15 0RF No Action metronidazole [Metrogel Vaginal] 0.75 % gel 1 appful vaginal BEDTIME 5 Days Qty: 70 0RF cyclobenzaprine 10 mg tablet 10 mg PO TID PRN (Reason: muscle spasm) Qty: 14 0RF ibuprofen 600 mg tablet 600 mg PO Q6H PRN (Reason: pain) Qty: 60 0RF Paxlovid (EUA) 300 mg (150 mg x 2)-100 mg tablets,dose pack See Rx Instructions .ROUTE .COMPLEX Qty: 30 0RF Rx Instructions: take TWO 150 mg tablets of nirmatrelvir with ONE 100 mg tablet of ritonavir twice daily for 5 days hydrocodone-homatropine [Hycodan] 5-1.5 mg/5 mL (5 mL) syrup 5 ml PO Q4-6H PRN (Reason: cough) Qty: 50 0RF Rx Instructions: Partial Fill upon patient request. hydrocodone-homatropine [Hycodan] 5-1.5 mg/5 mL (5 mL) syrup 5 ml PO Q4-6H PRN (Reason: cough) Qty: 60 0RF Rx Instructions: Partial Fill upon patient request. Referrals: [facility] [Provider Group] - 2 weeks Physician,Unknown J [Primary Care Provider] - 2 days Stand Alone Forms: Work/School Release
[2022-11-21 17:35] VITALS: BP 138/83; PULSE 83; RESP 16; O2SAT 97
[2022-11-21] MEDS: Ketorolac Tromethamine 15 MG/ML VIAL 30 MG IVPUSH (17:37)
[2022-11-21] MEDS: 0.9 % Sodium Chloride 1,000 ML 999 ML IV (17:38)
[2022-11-21 18:20] LABS: Appearance Urine Clear; Color Urine Yellow; Glucose Urine UA Negative (Negative); Leukocyte Esterase Urine Negative (Negative); Nitrite Urine Negative (Negative); Urine Blood Negative (Negative); Urine Ketones Negative (Negative); Urine Protein Negative (Neg-Trace)
== END 2022-11-21 19:07 | disposition home or self-care (01) ==
PROVIDERS: Physician Assistant Medical; Emergency Provider Internal Medicine
DX: N20.0 Calculus of kidney (principal); R10.9 Unspecified abdominal pain
CPT/HCPCS: 36415; 74176; 80053; 81003; 83690; 83735; 84702; 85025; 85610; 96361; 96374; 99284; J1885

== ENCOUNTER 2022-11-30 18:27 | Emergency (ER) | payer OTHER, SELFPAY ==
--- NOTE | ~2022-11-30 | XR_ITS ---
EXAMINATION: XR CHEST CLINICAL INFORMATION: Pain. COMPARISON: None available. TECHNIQUE: 2 views of the chest were obtained. FINDINGS: No significant abnormality is noted involving the heart, lungs, mediastinum, bony thorax or soft tissues. XR/XR chest 2V IMPRESSION: Unremarkable chest examination.
--- NOTE | 2022-11-30 18:29 | ECG_ITS ---
Test Reason : chest pain Blood Pressure : / mmHG Vent. Rate : 098 BPM Atrial Rate : 098 BPM P-R Int : 130 ms QRS Dur : 074 ms QT Int : 336 ms P-R-T Axes : 023 094 026 degrees QTc Int : 428 ms Normal sinus rhythm Rightward axis Borderline ECG No previous ECGs available Referred By: Generic ED Physician Electronically Signed By:OUMOU TALLEY MD
[2022-11-30 18:38] VITALS: BP 138/99; PULSE 115; RESP 18; TEMP 37.1; O2SAT 97; BMI 27.3
--- NOTE | 2022-11-30 18:38 | ED.GENADULT ---
HPI - General Adult General Chief complaint: Chest Pain Stated complaint: chest pain, sob, cough Source: patient and RN notes reviewed Mode of arrival: ambulatory Limitations: no limitations History of Present Illness HPI narrative: 42-year-old female presents for evaluation of cough, shortness of breath and chest tightness. Patient reports her symptoms started this past weekend, 5 days ago. She reports her symptoms have worsened over the last 2 days She complains of persistent, dry cough Denies any cardiac history. Patient is a nonsmoker. Denies any fevers, chills Denies sick contacts. The patient reports that she had COVID-19 in September of this year Related Data Previous Rx's Medication Instructions Recorded cyclobenzaprine 10 mg tablet 10 mg PO TID PRN muscle spasm #14 05/17/21 tabs ibuprofen 600 mg tablet 600 mg PO Q6H PRN pain #60 tabs 05/17/21 metronidazole 0.75 % (37.5 mg/5 1 appful vaginal BEDTIME 5 days 10/27/21 gram) vaginal gel (Metrogel #70 grams Vaginal) nirmatrelvir 300 mg (150 mg See Rx Instructions PO .COMPLEX 08/22/22 x2)-ritonavir 100 mg tablet,dose #30 ea pack(EUA) (Paxlovid) hydrocodone-homatropine 5 mg-1.5 5 ml PO Q4-6H PRN cough #50 mL 09/07/ mg/5 mL (5 mL) oral syrup (Hycodan) hydrocodone-homatropine 5 mg-1.5 5 ml PO Q4-6H PRN cough #60 mL 09/08/22 mg/5 mL (5 mL) oral syrup (Hycodan) ketorolac 10 mg tablet 10 mg PO TID PRN pain 5 days #15 11/21/22 tabs prednisone 20 mg tablet 40 mg PO DAILY 5 days #10 tabs 11/21/22 azithromycin 250 mg tablet See Rx Instructions PO .COMPLEX #6 11/30/22 tabs benzonatate 200 mg capsule 200 mg PO TID PRN cough #20 caps 11/30/22 prednisone 20 mg tablet 40 mg PO DAILY #10 tabs 11/30/22 Allergies Allergy/AdvReac Type Severity Reaction Status Date / Time No Known Allergies Allergy Verified 11/30/22 18:39 [No Known Allergies*] Review of Systems Constitutional: Constitutional: Reports as per HPI, Denies chills, Denies fatigue, Denies fever(s) and Denies headache(s) ENT: Denies headache(s) Gastrointestinal: Gastrointestinal: Denies abdominal pain, Denies constipation and Denies vomiting Genitourinary: Genitourinary: Denies dysuria Neurologic: Denies headache(s) and Denies focal weakness Endocrine: Endocrine: Denies fatigue PMFSH Past Medical History Medical History Encounter for gynecological examination with Papanicolaou smear of cervix History of gallbladder disease Family History Family History Maternal Aunt Breast cancer Brother Diabetes Father Diabetes Social History Social History Alcohol intake: current Alcohol intake frequency: holidays/special occasions only Gender identity: Female Physical Exam ED Vital Signs: Vital Signs - 24 hr 11/30/22 18:38 Temperature 98.8 F Pulse Rate 115 H Respiratory Rate 18 Blood Pressure 138/99 H Pulse Oximetry 97 Oxygen Delivery Method Room Air BMI result Body Mass Index 27.3 Const General: healthy appearing, comfortable, no acute distress, alert and awake Nutritional Appearance: well nourished Orientation/consciousness: patient oriented x3 HENMT Head: Yes normocephalic and Yes atraumatic Throat: Yes posterior oropharynx normal Eyes Eyelids: Yes eyelids normal Conjunctivae: conjunctivae normal Sclerae: sclerae normal Corneas: corneas normal Pupils: Equal, round and reactive pupils present EOM: EOMs intact bilaterally Neck Neck: Yes full ROM Resp Effort & Inspection: normal respiratory effort, able to speak in complete sentences, no audible wheezes and not labored Auscultation: clear to auscultation bilaterally Cardio Rate: regular rate Rhythm: regular rhythm GI Inspection: No distended Palpation (GI): Soft to palpation, not firm, nontender, no guarding and not rigid Auscultation: normoactive bowel sounds Skin General skin exam: no rashes or lesions noted and elasticity normal Neuro General: patient oriented x3 Cranial nerves: Yes Equal, round and reactive pupils present and Yes Bilaterally intact EOM present Cognition (Neuro): normal cognition Extrem Other: Moving all extremities well without any obvious deformities Course Course Course Narrative: RME- 42-year-old female presents for evaluation of cough, congestion, chest pain with coughing. Symptoms started yesterday. Patient is a nonsmoker. Lungs are clear to auscultation Plan for x-ray and viral swab. EKG also order given chest pain Reevaluation(s) Reevaluation #1: Patient was tachycardic on arrival, this improved without intervention. Patient's oxygen saturation 96% on room air. Time: 20:31 Medical Decision Making Medical Decision Making MDM Narrative: 42-year-old nonsmoker who denies any history of cardiac disease presents for evaluation of shortness of breath, congestion and cough. Chest x-ray is clear, EKG is nonischemic. Unfortunately the lab does not run viral panels overnight on the 2nd and 3rd shift. Told. Given that the patient had COVID 2 months ago, for the COVID-19 is less likely. We will treat the patient for bronchitis. She was discharged with azithromycin, prednisone and benzonatate Differential Diagnosis Bronchitis Pneumonia Upper respiratory infection Viral syndrome Independent Interpretation I performed an independent interpretation of an: EKG (Sinus rhythm with a rate of 98 beats per minute. No ectopy) and Plain X-Ray Radiology Impression Radiologist Impression: No acute pathology suggest Discharge Plan Discharge Clinical Impression: Bronchitis Patient Disposition: Home, Self-Care Instructions: Acute Bronchitis (ED) Additional Instructions: Take azithromycin and prednisone as directed Use benzonatate as needed for cough Hydrate well Follow-up with your primary doctor Prescriptions: New azithromycin 250 mg tablet See Rx Instructions .ROUTE .COMPLEX Qty: 6 0RF Rx Instructions: For 250 mg dose pack: take 500 mg today (day 1), then 250 mg for 4 days (days 2-5) benzonatate 200 mg capsule 200 mg PO TID PRN (Reason: cough) Qty: 20 0RF prednisone 20 mg tablet 40 mg PO DAILY Qty: 10 0RF No Action metronidazole [Metrogel Vaginal] 0.75 % gel 1 appful vaginal BEDTIME 5 Days Qty: 70 0RF cyclobenzaprine 10 mg tablet 10 mg PO TID PRN (Reason: muscle spasm) Qty: 14 0RF ibuprofen 600 mg tablet 600 mg PO Q6H PRN (Reason: pain) Qty: 60 0RF Paxlovid (EUA) 300 mg (150 mg x 2)-100 mg tablets,dose pack See Rx Instructions .ROUTE .COMPLEX Qty: 30 0RF Rx Instructions: take TWO 150 mg tablets of nirmatrelvir with ONE 100 mg tablet of ritonavir twice daily for 5 days hydrocodone-homatropine [Hycodan] 5-1.5 mg/5 mL (5 mL) syrup 5 ml PO Q4-6H PRN (Reason: cough) Qty: 50 0RF Rx Instructions: Partial Fill upon patient request. hydrocodone-homatropine [Hycodan] 5-1.5 mg/5 mL (5 mL) syrup 5 ml PO Q4-6H PRN (Reason: cough) Qty: 60 0RF Rx Instructions: Partial Fill upon patient request. prednisone 20 mg tablet 40 mg PO DAILY 5 Days Qty: 10 0RF ketorolac 10 mg tablet 10 mg PO TID PRN (Reason: pain) 5 Days Qty: 15 0RF
[2022-11-30 19:36] LABS: Influenza A PCR NEGATIVE (Negative); Influenza B PCR NEGATIVE (Negative); Resp Syncy Virus RNA Qual PCR NEGATIVE (Negative); SARS COV2 PCR INHOUSE NEGATIVE (Negative)
[2022-11-30 20:28] VITALS: BP 123/94; PULSE 96; O2SAT 96
== END 2022-11-30 20:40 | disposition home or self-care (01) ==
PROVIDERS: Physician Assistant; Emergency Provider Emergency Medicine
DX: J40 Bronchitis, not specified as acute or chronic (principal); R06.02 Shortness of breath; Z20.822 Contact with and (suspected) exposure to COVID-19; Z20.828 Contact with and (suspected) exposure to other viral communicable diseases
CPT/HCPCS: 0241U; 71046; 93005; 99283

== ENCOUNTER → 2023-01-17 11:03 | Outpatient (BNVA) | payer OTHER, SELFPAY | PROVIDERS: Visit Provider Nurse Practitioner Family | DX: N20.0 Calculus of kidney (principal) | CPT/HCPCS: 99202 ==